=== PATIENT | female | born 1990 ===

== ENCOUNTER 2025-01-11 04:49 | Emergency (ER) | payer OTHER, SELFPAY ==
[2025-01-11 04:53] VITALS: BP 95/44; PULSE 87; RESP 17; TEMP 36.9; O2SAT 99; BMI 31.8
[2025-01-11 05:09] LABS: Basophils Percent Auto 0.4 % (0-2); Eosinophils Absolute Auto 0.1 X10*3/uL (0.0-0.4); Eosinophils Percent Auto 1.3 % (0-4); Hematocrit 34.5 % (37.0-47.0); Hemoglobin 12.1 g/dl (12.0-16.0); Imm Gran Abs Auto 0.03 X10*3/uL (0.00-0.03); Imm Gran Pct Auto 0.4 % (0.0-0.4); Lymphocytes Absolute Auto 2.2 X10*3/uL (1.2-4.9); Lymphocytes Percent Auto 28.7 % (20-40); MANUAL DIFF FLAG NO; Mean Corpuscular HGB Conc 35.1 g/dl (31.0-35.0); Mean Corpuscular Hemoglobin 27.3 pg (27.0-33.0); Mean Corpuscular Volume 77.7 fL (80.0-98.0); Mean Platelet Volume 10.7 fL (9.4-12.3); Monocytes Absolute Auto 0.7 X10*3/uL (0.1-1.2); Monocytes Percent Auto 9.4 % (2-11); Neutrophils Absolute Auto 4.6 x10*3/uL (2.0-8.3); Neutrophils Percent Auto 59.8 % (45-73); Platelet Count 285 X10*3/uL (160-400); Red Blood Count 4.44 X10*6/uL (4.20-5.50); Red Cell Distribution Width 13.2 % (11.0-16.0); White Blood Count 7.7 X10*3/uL (4.8-10.8)
[2025-01-11 05:32] LABS: Alanine Aminotransferase 42 U/L (0-31); Albumin Level 4.1 g/dL (3.5-5.0); Alkaline Phosphatase 73 U/L (39-117); Anion Gap 12 (12-20); Aspartate Amino Transferase 33 U/L (5-31); Bilirubin Total 0.4 mg/dL (0.0-1.0); Blood Urea Nitrogen 7 mg/dL (9-16); Calcium 9.3 mg/dL (8.4-10.2); Carbon Dioxide 23 mmol/L (22-29); Chloride 106 mmol/L (96-108); Creatinine Clr Calc Pharmacy 137.9; Estimated Glomerular Filt Rate > 60; Glucose Random 106 mg/dL (60-115); Lipase 12 U/L (8-78); Potassium 4.2 mmol/L (3.3-5.1); Sodium 137 mmol/L (135-145); Total Protein 7.1 g/dL (6.5-8.0)
[2025-01-11 05:50] LABS: HCG Quantitative 90387 mIU/mL
[2025-01-11 06:00] LABS: Appearance Urine Clear; Color Urine Yellow; Glucose Urine UA Negative (Negative); Leukocyte Esterase Urine Trace (Negative); Nitrite Urine Negative (Negative); PH 8.5 (5.0-9.0); Specific Gravity - Urine 1.015 (1.005-1.025); UMIC TRIGGER UACC YES; Urine Blood Negative (Negative); Urine Ketones Negative (Negative); Urine Protein Negative (Neg-Trace)
[2025-01-11 06:02] LABS: Bacteria Urine None Seen (None Seen); Hyaline Casts Urine 0-2 /LPF (0-2); RBC Urine 0-2 /HPF (0-2); Squamous Epithelial Cell Urine 0-2 /HPF (0-2); WBC Urine 0-5 /HPF (0-5)
[2025-01-11 06:18] LABS: IDNOW Serial# 58CA691E; Strep A Nucleic Acid Negative (Negative)
--- NOTE | 2025-01-11 07:53 | ED.GENADULT ---
HPI - General Adult General Chief complaint: Nausea/Vomiting/Diarrhea Stated complaint: throat pain Time Seen by Provider: 01/11/25 07:51 Source: patient Mode of arrival: ambulatory Limitations: no limitations History of Present Illness HPI narrative: This is a had approximate 9 weeks gestation who presents for evaluation of nausea/vomiting and sore throat. Patient states that she has had intermittent nausea and vomiting over the last couple of weeks. She states that she went to the local pharmacy to get a ?antinausea bracelet?. She states that some sore throat and was unsure whether or not the sore throat was from her vomiting or an allergic reaction to the bracelet. She states no rash or pruritus. She states no chest pain or dyspnea. She better states no odynophagia, fevers, cough or congestion. She states no changes in bowel habits or urinary she states no vaginal bleeding. She states that she recently moved to the area and has an OBGYN [facility]. She states that she has had an ultrasound confirming intrauterine at her 1st visit. She states that she had an appointment yesterday at [facility] for an , but she states that she did not go through with it. She states that she goes back and forth whether or not she wants to move forward with the . She states no trauma. Related Data Previous Rx's ?Medication ?Instructions ?Recorded ondansetron 4 mg disintegrating 4 mg PO Q8H PRN nausea and 01/11/25 tablet vomiting #20 tabs Allergies Allergy/AdvReac Type Severity Reaction Status Date / Time Penicillins Allergy Hives Verified 01/11/25 04:56 Review of Systems Review of Systems: ROS as per [facility] Social History Social History Advance Directives: No Advance Directives Information Provided: Yes Do you have a plan to hurt others: No Plan Physical Exam ED Vital Signs: Vital Signs - 24 hr 01/11/25 04:53 Temperature 98.5 F Pulse Rate 87 Respiratory Rate 17 Blood Pressure 95/44 L Pulse Oximetry 99 Oxygen Delivery Method Room Air BMI result Body Mass Index 31.8 Gen: NAD, AOx3 HEENT: NCAT, EOMI, normal conjunctiva, uvula midline without edema, mild posterior oropharynx erythema without exudates, no palatal asymmetry, no sublingual edema CV: RRR Pulm: CTAB, no increased work of breathing GI: Soft, NTND, no rebound, guarding or rigidity Neuro: Grossly non focal Skin: Warm, dry, no urticaria Medical Decision Making Medical Decision Making MDM Narrative: Differential diagnosis includes, but is not limited to nausea/vomiting of , viral syndrome, pharyngitis, acute kidney injury, electrolyte derangement. Patient is afebrile and hemodynamically stable on room air. Exam is benign and reassuring. History and exam not consistent with allergic reaction/anaphylaxis. Patient was treated supportively with 4 mg p.o. Zofran ODT. Considered obtaining pelvic ultrasound, but the patient states that she has already had one and declines repeat ultrasound at this time. She states feeling comfortable following up with her OBGYN and states that she has another ultrasound coming up in the next few weeks. On re-examination, patient is well-appearing and in no acute distress. ?Patient states symptoms have resolved. ?There is no indication for further emergent evaluation in this otherwise well-appearing patient as above. ?Patient is provided written and verbal instructions, educational materials, recommendations for outpatient follow-up, prescription for Zofran, strict return precautions and teach back is performed. ?Patient states understanding and agreement with plan of care. ?Patient is discharged home in stable and improved condition. Admission/Observation Consideration of admission/observation: Escalation of care including admission/observation considered Lab Data MDM Lab Attestation statement: I reviewed the patient's lab results. CBC, metabolic panel are unremarkable. Lipase within normal limits. Beta HCG 38482. Urinalysis unremarkable, no asymptomatic bacteriuria. Strep test negative. 01/11/25 05:05 01/11/25 05:05 Labs: Lab Results 01/11/25 01/11/25 Range/Units 05:05 05:51 WBC 7.7 (4.8-10.8) X10*3/uL RBC 4.44 (4.20-5.50) X10*6/uL Hgb 12.1 (12.0-16.0) g/dl Hct 34.5 L (37.0-47.0) % MCV 77.7 L (80.0-98.0) fL MCH 27.3 (27.0-33.0) pg MCHC 35.1 H (31.0-35.0) g/dl RDW 13.2 (11.0-16.0) % Plt Count 285 (160-400) X10*3/uL MPV 10.7 (9.4-12.3) fL Immature Gran % (Auto) 0.4 (0.0-0.4) % Neut % (Auto) 59.8 (45-73) % Lymph % (Auto) 28.7 (20-40) % [place] % (Auto) 9.4 (2-11) % Eos % (Auto) 1.3 (0-4) % Baso % (Auto) 0.4 (0-2) % Lymph # (Auto) 2.2 (1.2-4.9) X10*3/uL [place] # (Auto) 0.7 (0.1-1.2) X10*3/uL Eos # (Auto) 0.1 (0.0-0.4) X10*3/uL Baso # (Auto) 0.0 (0.0-0.2) X10*3/uL Abs Immat Gran (auto) 0.03 (0.00-0.03) X10*3/uL Absolute Neuts (auto) 4.6 (2.0-8.3) x10*3/uL Absolute Nucleated RBC 0.000 (0.0-0.012) X10*3/uL Nucleated RBC % (auto) 0.0 (0.0-0.2) /100WBC Sodium 137 (135-145) mmol/L Potassium 4.2 (3.3-5.1) mmol/L Chloride 106 (96-108) mmol/L Carbon Dioxide 23 (22-29) mmol/L Anion Gap 12 (12-20) BUN 7 L (9-16) mg/dL Creatinine 0.66 (0.5-1.4) mg/dL Estim Creat Clear Calc 137.9 Estimated GFR > 60 Random Glucose 106 (60-115) mg/dL Calcium 9.3 (8.4-10.2) mg/dL Total Bilirubin 0.4 (0.0-1.0) mg/dL AST 33 H (5-31) U/L ALT 42 H (0-31) U/L Alkaline Phosphatase 73 (39-117) U/L Total Protein 7.1 (6.5-8.0) g/dL Albumin 4.1 (3.5-5.0) g/dL Lipase 12 (8-78) U/L Beta HCG, Quant 89312 mIU/mL Urine Color Yellow Urine Appearance Clear Urine pH 8.5 (5.0-9.0) Ur Specific [place] 1.015 (1.005-1.025) Urine Protein Negative (Neg-Trace) mg/dL Urine Glucose (UA) Negative (Negative) mg/dL Urine Ketones Negative (Negative) mg/dL Urine Blood Negative (Negative) Urine Nitrite Negative (Negative) Ur Leukocyte Esterase Trace H (Negative) Urine RBC 0-2 (0-2) /HPF Urine WBC 0-5 (0-5) /HPF Ur Squamous Epith Cells 0-2 (0-2) /HPF Urine Bacteria None Seen (None Seen) Hyaline Casts 0-2 (0-2) /LPF S. pyogenes GrpA JOHN Negative (Negative) Discharge Plan Discharge Clinical Impression: Vomiting of Patient Disposition: Home, Self-Care Instructions: Nausea and Vomiting in (ED) Additional Instructions: You were evaluated in the emergency room. Your vital signs, blood work and urine studies were very reassuring. You tested negative for strep throat. You are given a prescription for an anti-nausea medicine. Please take as directed. Please follow up with your OBGYN within the next 1 day. Return to the emergency room with any new concerns or symptoms. Prescriptions: New ondansetron 4 mg tablet,disintegrating 4 mg PO Q8H PRN (Reason: nausea and vomiting) Qty: 20 0RF Print Language: Austrian
[2025-01-11] MEDS: Ondansetron ODT 4 MG TAB.RAPDIS TRANSLINGU (08:06)
[2025-01-11 08:09] VITALS: BP 95/44; PULSE 87; RESP 17; TEMP 36.9; O2SAT 99
== END 2025-01-11 08:09 | disposition home or self-care (01) ==
PROVIDERS: Emergency Provider Emergency Medicine
DX: O21.0 Mild hyperemesis gravidarum (principal); Z3A.09 9 weeks gestation of pregnancy; J02.9 Acute pharyngitis, unspecified; Z79.899 Other long term (current) drug therapy
CPT/HCPCS: 36415; 80053; 81001; 83690; 84702; 85025; 87651; 99282; 99283